=== PATIENT | female | born 1970 | race Caucasian/White ===

== ENCOUNTER 2023-11-19 09:49 | Emergency (ER) | payer MEDICAID ==
[~2023-11-19] VITALS: Ht 165.1 cm; Wt 59.1 kg
[2023-11-19] MEDS ORDERED: AMOX-580 PO (10:06)
[2023-11-19] MEDS: TETanus/Pertussis (Acell)/Diphther VAC/PF (Tdap-Adult) 0.5ml syringe IMVAC ONE (10:25)
[2023-11-19 10:29] VITALS: BP 122/70; PULSE 68; RESP 16; TEMP 97.9; O2SAT 97
== END 2023-11-19 10:30 | disposition home or self-care (01) ==
LOC: ER 09:49
DX: S61.250A Open bite of right index finger without damage to nail, initial encounter (principal); Z79.2 Long term (current) use of antibiotics; W55.01XA Bitten by cat, initial encounter; Y93.89 Activity, other specified; Y92.89 Other specified places as the place of occurrence of the external cause; Y99.8 Other external cause status
CPT/HCPCS: 90471; 90715; 99283

== ENCOUNTER 2024-07-10 12:34 | Emergency (ER) | payer SELFPAY ==
[~2024-07-10] VITALS: Ht 165.1 cm; Wt 56.7 kg
[2024-07-10 12:46] VITALS: BP 109/71; PULSE 85; TEMP 97.6; O2SAT 100
--- NOTE | 2024-07-10 13:07 | Physician Documentation ---
History of Present Illness ~ Chief Complaint: Mechanical Fall Stated Complaint: BACK AND SHOULDER PAIN Time Seen by MD: 12:50 HPI This is a 54-year-old female who presents with left chest wall and shoulder pain after a mechanical fall on Monday, patient reports that a blanket that was stuck on her horse that ran away caused her to trip and fall striking her left side and head, patient reports no loss of consciousness and reports she is not on blood thinners. Patient reports pain worse over her left clavicle and left posterior back just inferior to her scapula. Tetanus within 5 Years?: Yes Medication Reconciliation Allergies: Coded Allergies: No Known Allergies (Unverified , 07/10/24) Scheduled Cyclobenzaprine* (Cyclobenzaprine*), 1 TAB PO TID Ibuprofen (Ibuprofen), 1 TAB PO Q8H Lidocaine (Lidoderm), 1 PATCH TOP DAILY Review of Systems ROS Left chest wall and shoulder pain as stated above in the HPI, otherwise all systems are reviewed and negative. Physical Exam Vital Signs: Temperature: 97.6, Source: Temporal, Heart Rate: 85, Respiratory Rate: 18, BP: 109/71, Pulse Oximetry: 100, Weight: 56.700 Physical Exam Tenderness to left clavicle, tenderness to posterior chest wall just inferior to left scapula, no central C-spine or central spinal tenderness Progress Results/Orders Results/Orders Orders - DEANA ESPINOZA [employer] Chest,Two Views (07/10/24 13:07) Clavicle (07/10/24 13:07) Scapula (07/10/24 13:07) Completed Orders - DEANA ESPINOZA [employer] Chest,Two Views (07/10/24 13:07) Clavicle (07/10/24 13:07) Scapula (07/10/24 13:07) Ketorolac Trometh 15mg/Ml Vial (Toradol (07/10/24 13:55) Cyclobenzaprine Tablet (Flexeril Tablet) (07/10/24 15:45) Lidocaine 5% Patch (Lidoderm 5% Patch) (07/10/24 15:45) Medications Received in ER Medications (Trade) Dose Ordered Sig/Yves Route PRN Reason Start Time Stop Time Status Last Admin Dose Admin (Toradol injection) 15 mg ONCE ONCE IM 07/10/24 13:55 07/10/24 13:56 DC 07/10/24 14:46 15 MG (Flexeril tablet) 10 mg ONCE ONCE PO 07/10/24 15:45 07/10/24 15:46 DC 07/10/24 15:51 10 MG (Lidoderm 5% Patch) 1 patch ONCE ONCE TP 07/10/24 15:45 07/10/24 15:46 DC 07/10/24 15:53 1 PATCH Vital Signs 07/10/24 07/10/24 12:46 15:57 Temp 97.6 Pulse 85 Resp 18 16 B/P (MAP) 109/71 Pulse Ox 100 EKG/XRAY/CT/US/VASC/MRI Bone/Soft Tissue X-Ray (Ext.) #1: Additional Comment CLINICAL INDICATION: Fall TECHNIQUE: 2 radiographic views of the left scapula were obtained. Comparison: None FINDINGS/IMPRESSION: There is no evidence of acute fracture or dislocation. Prior surgical changes of the lateral clavicle is seen at the AC joint. The alignment is anatomical. There is no radiopaque foreign body. Electronically Signed by:MIGUEL ÁNGEL MIRAMONTES MD Date & Time: 07/10/24 1500 Dictated by: MIGUEL ÁNGEL MIRAMONTES MD Dictation date and time: 07/10/241499 I have reviewed and agree with the radiology report. I have reviewed and interpreted the imaging as: No fracture or dislocation Bone/Soft Tissue X-Ray (Ext.) #2: Additional Comment DI CLAVICLE, HISTORY: Fall TECHNICAL DATA: AP and AP cephalic views were obtained of the left clavicle. COMPARISON: None FINDINGS: Prior surgical changes of the lateral clavicle is seen at the AC joint. The acromioclavicular joint appears preserved. . IMPRESSION: Prior surgical changes of the lateral clavicle is seen at the AC joint. Electronically Signed by:MIGUEL ÁNGEL MIRAMONTES MD Date & Time: 07/10/24 150 Dictated by: MIGUEL ÁNGEL MIRAMONTES MD Dictation date and time: 07/10/24 150 I have reviewed and agree with the radiology report. I have reviewed and interpreted the imaging as: No fracture or dislocation Bone/Soft Tissue X-Ray (Ext.) #3: Additional Comment DI CHEST,TWO VIEWS, HISTORY: Fall COMPARISON: None None TECHNICAL DATA: 2 view of the chest was obtained. FINDINGS: Lines and tubes: None Cardiomediastinal silhouette: normal Pulmonary vasculature: normal Lung expansion: normal Lung airspace: normal Lung interstitium: normal Pleura: normal Pneumothorax: no Bones: Unremarkable Other: no IMPRESSION: No acute intrathoracic abnormality. Electronically Signed by:MIGUEL ÁNGEL MIRAMONTES MD Date & Time: 07/10/241501 Dictated by: MIGUEL ÁNGEL MIRAMONTES MD Dictation date and time: 07/10/241501 I have reviewed and agree with the radiology report. I have reviewed and interpreted the imaging as: No fracture or dislocation Medical Decision Making Findings This 54-year-old female presented with pain to her left left chest wall and shoulder after a mechanical fall two days prior, it was reassuring patient did not lose consciousness is not on blood thinners, physical exam was benign with no deformities, crepitus, or ecchymosis observed on exam, x-rays of he chest, clavicle, and scapula did not demonstrate evidence of fracture or dislocation, at this time I believe all injuries and pain to be related to soft tissue injuries. Patient medicated for pain in the department reporting adequate relief. Vital signs stable and patient is appropriate for outpatient follow up. Differential Dx:Considerations: Include: Closed head injury, Fracture(s), Pneumothorax, Pulmonary contusion, Spine injury, Contusion(s), Foreign body(s), Hematoma(s), Laceration(s), Other (Flail chest, hemothorax, dislocation) Departure Time of Disposition: 15:37 Disposition: 01 HOME / SELF CARE / HOMELESS Impression: Primary Impression: Rib pain Condition: Improved Discharge Instructions: Contusion Additional Instructions: Your x-rays did not show any evidence of fractures, please use the prescribed high-dose ibuprofen and muscle relaxers as needed for pain, do not take ibuprofen for the next 12 hours as you received a shot of Toradol which replace this medication today. Take ibuprofen with food to avoid stomach upset and do not mix muscle relaxers with any narcotic medications or alcohol also do not drive or operate heavy machinery while taking muscle relaxers. Please return to the emergency department for any new or worsening concerning symptoms. I recommend also establish with a primary care provider for further follow up. Referrals: NO PRIMARY CARE PROVIDER (PCP) Prescriptions Lidocaine (Lidoderm) 5 % Adh..patch 1 PATCH TOP DAILY for 10 Days, #10 PATCH 0 Refills may wear up to 12 hours Prov: DEANA ESPINOZA 07/10/24 Ibuprofen (Ibuprofen) 800 Mg Tablet 1 TAB PO Q8H for pain for 10 Days, #30 TAB 0 Refills Prov: DEANA ESPINOZA 07/10/24 Cyclobenzaprine* (Cyclobenzaprine*) 10 Mg Tablet 1 TAB PO TID for 5 Days, #15 TAB Prov: DEANA ESPINOZA 07/10/24 Education Educated: Patient Educated regarding: diagnosis, treatment, prognosis, need for follow up Signature Scribe Signature: No scribe Attestation: The note accurately reflects work and decisions made by me.URVASHI Norton 07/10/24 21:55 DEANA ESPINOZA Jul 10, 2024 13:07
[2024-07-10] MEDS: ketorolac trometh 15mg/ml vial 15 MG/ML ML IM ONE (14:46)
--- NOTE | 2024-07-10 15:02 | RADIOLOGY REPORT ---
CLINICAL INDICATION: Fall TECHNIQUE: 2 radiographic views of the left scapula were obtained. Comparison: None FINDINGS/IMPRESSION: There is no evidence of acute fracture or dislocation. Prior surgical changes of the lateral clavicle is seen at the AC joint. The alignment is anatomical. There is no radiopaque foreign body.
--- NOTE | 2024-07-10 15:05 | RADIOLOGY REPORT ---
DI CHEST,TWO VIEWS, HISTORY: Fall COMPARISON: None None TECHNICAL DATA: 2 view of the chest was obtained. FINDINGS: Lines and tubes: None Cardiomediastinal silhouette: normal Pulmonary vasculature: normal Lung expansion: normal Lung airspace: normal Lung interstitium: normal Pleura: normal Pneumothorax: no Bones: Unremarkable Other: no IMPRESSION: No acute intrathoracic abnormality.
--- NOTE | 2024-07-10 15:11 | RADIOLOGY REPORT ---
DI CLAVICLE, HISTORY: Fall TECHNICAL DATA: AP and AP cephalic views were obtained of the left clavicle. COMPARISON: None FINDINGS: Prior surgical changes of the lateral clavicle is seen at the AC joint. The acromioclavicular joint appears preserved. . IMPRESSION: Prior surgical changes of the lateral clavicle is seen at the AC joint.
[2024-07-10] MEDS ORDERED: IBUP-1986 PO (15:42)
[2024-07-10] MEDS ORDERED: LIDO700A32 TOP (15:42)
[2024-07-10] MEDS ORDERED: CYCL-1 PO (15:42)
[2024-07-10] MEDS: cyclobenzaprine 10mg tablet PO ONE (15:51)
[2024-07-10] MEDS: LIDOcaine 5% patch TP ONE (15:53)
[2024-07-10 15:57] VITALS: RESP 16
== END 2024-07-10 16:03 | disposition home or self-care (01) ==
LOC: ER 12:34
DX: R07.81 Pleurodynia (principal); M25.512 Pain in left shoulder
CPT/HCPCS: 71046; 73000; 73010; 96372; 99284; J1885